=== PATIENT | male | born 1975 | race Caucasian/White ===

== ENCOUNTER 2024-07-02 08:53 | Emergency (ER) | payer BC, SELFPAY ==
[2024-07-02 09:00] VITALS: BP 115/82; PULSE 93; RESP 20; TEMP 35.9; O2SAT 90; BMI 25.8
--- NOTE | 2024-07-02 09:17 | ED_ITS ---
HPI - General Adult General Date Seen: 07/02/24 Chief complaint: Weakness Stated complaint: blood sugar issues Time Seen by Provider: 07/02/24 08:57 History of Present Illness HPI narrative: Patient is a 48-year-old male with underlying history of alcohol dependence, diabetes, pancreatitis, presents for evaluation of high blood sugars, weakness, cough. He is currently at a treatment center, [place], has been there since June 14 for treatment of alcohol dependence. For the past couple of days he has been having a cough and wheezing, has apparently been seen at an outside facility 3 previous times related to cough and elevated blood sugars. He notes a history of diabetes, he was maintained on Lantus 10 units at bedtime previously, more recently apparently had been told he does not need the insulin and says he was switched to metformin but that did not have good blood sugar control mode switch back to Lantus. Blood sugar this morning was 400. He was taking prednisone until yesterday but says he discontinued that because of elevated blood sugars. He feels generally weak and thirsty, which is how he gets when his blood sugars high. He did not have anything else to use for elevated blood sugar at the treatment facility and so presents for additional evaluation. Continues to have wheezing and cough, does not feel significantly short of breath. Does have history tobacco use. Related Data Allergies Allergy/AdvReac Type Severity Reaction Status Date / Time bupropion (From Wellbutrin) Allergy Verified 07/02/24 08:58 Review of Systems Status of ROS: Reports: 10 or more systems reviewed and unremarkable except as noted in History and below [facility] Social History Smoking Status: Current every day smoker What tobacco products do you use: cigarettes Do you use any of these nicotine containing products: None Second hand tobacco smoke exposure: No Non-prescribed substance use details: last drink 06/14/24 service: No Exam Narrative: Exam Narrative: Vital signs reviewed In general, alert, nontoxic mid age male. Breathing comfortably. Head: Normocephalic, atraumatic. Eyes: Sclera clear. Pupils equal and reactive. ENT: Mucous membranes moist. Neck: Supple without adenopathy. Heart: Regular rate and rhythm without murmur. Lungs: Scattered bilateral wheezes and rhonchi. No increased work of breathing. Bronchospastic cough. Abdomen: Soft, nontender to palpation. Protuberant. No obvious ascites. Extremities: Well perfused, pulses intact. No significant edema. Neurologic: Alert, conversant. Speech fluent, face symmetric. Moves all extremities equally. Skin: Warm, dry well perfused. Affect: Flat. Const: Vital Signs, click to edit/add: Vital Signs - 24 hr 07/02/24 09:00 Temperature 96.7 F L Pulse Rate [Pulse Oximeter] 93 Respiratory Rate 20 Blood Pressure [Ri ght Upper Arm] 115/82 Pulse Oximetry 90 Oxygen Delivery Me thod Room Air Course Course ED Course: Patient presents with concerns of hyperglycemia in the setting of diabetes, ongoing cough and bronchospasm. He is mildly hypoxic here, room air O2 sats of 89-91%. He does have some wheezing so will give a DuoNeb for that. Hyperglycemia likely related to prednisone use, but will rule out significant other metabolic disturbance, DKA etcetera. Will get a blood sugar here and then we can give him some subQ regular insulin if needed. Given hypoxia, will just check a chest x-ray and make sure he does not have pneumonia as well. Chest x-ray by my review is negative, radiology read it is negative as well. His blood sugar was elevated at 400, 372 on his metabolic panel, gave him 8 units of subcu regular insulin. However, all of his other labs are reassuring. His white blood cell count is normal, there is no evidence of acidosis, venous pH is 7.44 pCO2 is normal, BUN creatinine are normal and his CO2 is 26. Lactate is 1.5, LFTs unremarkable BNP normal. Overall, clearly has some hyperglycemia, likely related to a combination of being sick and recent prednisone use. Did suggest that the prednisone be held, for now, I have recommended that he continue with his Lantus. I did recommend that he see someone in primary care clinic to assess whether his insulin dosing needs to be adjusted. Continue with albuterol as needed for wheezing and cough, no evidence of pneumonia today. Vital Signs Vital signs: Initial Vital Signs Temperature 96.7 F L 07/02/24 09:00 Temperature Source Temporal Artery Scan 07/02/24 09:00 Pulse Rate 93 07/02/24 09:00 Pulse Rhythm Regular 07/02/24 09:00 Respiratory Rate 20 07/02/24 09:00 Blood Pressure 115/82 07/02/24 09:00 Blood Pressure Mean 93 07/02/24 09:00 Blood Pressure Position High-Fowlers 07/02/24 09:00 Pulse Oximetry 90 07/02/24 09:00 Oxygen Delivery Method Room Air 07/02/24 09:00 Vital Signs Temperature 96.7 F L 07/02/24 09:00 Pulse Rate 93 07/02/24 09:00 Respiratory Rate 20 07/02/24 09:00 Blood Pressure 115/82 07/02/24 09:00 Pulse Oximetry 90 07/02/24 09:00 Oxygen Delivery Method Room Air 07/02/24 09:00 Temperature 96.7 F L 07/02/24 09:00 Pulse Rate 93 07/02/24 09:00 Respiratory Rate 20 07/02/24 09:00 Blood Pressure 115/82 07/02/24 09:00 Pulse Oximetry 90 07/02/24 09:00 Oxygen Delivery Method Room Air 07/02/24 09:00 Medications Administered Medications: Discontinued Medications Generic Name Dose Route Start Last Admin Trade Name Felicia PRN Reason Stop Dose Admin Albuterol/Ipratropium 1 neb 07/02/24 09:15 07/02/24 09:40 Iprat-Albut 0.5-2.5 Mg/3 Ml Neb IH 07/02/24 09:16 1 neb ONCE ONE Administration Sodium Chloride 500 mls @ 500 mls/hr 07/02/24 09:15 07/02/24 09:40 0.9 % Sodium Chloride 500 Ml IV 07/02/24 10:14 500 mls/hr .Q1H ONE Administration Insulin Human Regular 8 unit 07/02/24 09:55 07/02/24 10:12 Insulin Regular, Human 100 Unit/Ml Vial SUBCUT 07/02/24 09:56 8 unit ONCE ONE Administration Medical Decision Making Lab Data Lab results reviewed: Yes I reviewed the patient's lab results Labs: Lab Results 07/02/24 Range/Units 09:42 WBC 5.82 (4.50-11.00) K/uL RBC 4.82 (4.30-5.90) m/uL Hgb 15.7 (13.5-17.5) gm/dL Hct 45.2 (37.0-53.0) % MCV 94 (80-100) fL MCH 33 (26-34) pg MCHC 35 (32-36) gm/dL RDW Coeff of Katiuska 11.6 (11.5-15.5) % Plt Count 102 L (140-440) K/uL Neut % (Auto) 60.4 (42.0-72.0) % Lymph % (Auto) 28.7 (20-44) % [place] % (Auto) 8.8 (0.0-11.0) % Eos % (Auto) 1.4 (0.0-7.0) % Baso % (Auto) 0.5 (0.0-3.0) % Neut # (Auto) 3.52 (1.7-7.0) K/uL Lymph # (Auto) 1.67 (0.90-2.90) K/uL [place] # (Auto) 0.50 (0.00-0.90) K/UL Eos # (Auto) 0.08 (0.00-0.50) K/uL Baso # (Auto) 0.03 (0.00-0.30) K/uL Abs Immat Gran (auto) 0.01 (0.00-0.30) K/uL Imm/Tot Granulo (auto) 0.2 % Diff Slide Review Acceptable Review (Acceptable) VBG pH 7.441 H (7.32-7.43) VBG pCO2 41 (40-50) mmHG VBG pO2 50.0 H (25-47) mmHG VBG HCO3 28 (21-28) mmol/L Sodium 136 (135-149) mmol/L Potassium 3.9 (3.6-5.1) mmol/L Chloride 100 (96-114) mmol/L Carbon Dioxide 26 (20-32) mmol/L Anion Gap 10 (7-15) mEq/L BUN 18 (5-24) mg/dL Creatinine 0.6 (0.5-1.5) mg/dL Estimated Creat Clear 157.15 Estimated GFR 120 ml/min Glucose 372 H* (60-115) mg/dL Lactate 1.5 (0.5-1.9) mmol/L Calcium 9.1 (8.4-10.6) mg/dL Total Bilirubin 0.4 (0.1-1.5) mg/dL Direct Bilirubin 0.3 (0.0-0.5) mg/dL AST 34 (12-35) U/L ALT 65 H (4-50) U/L Alkaline Phosphatase 69 (40-150) U/L C-Reactive Protein 0.8 (0.5-1.0) mg/dL NT-Pro-B Natriuret Pep 28 pg/mL Total Protein 7.1 (6.0-8.3) g/dL Albumin 4.3 (3.3-5.0) g/dL Imaging Data Chest x-ray: Attestation: I have reviewed the pertinent imaging results. Radiologist's impression: Patient: Cesar Karimi MR#: [id number] : 1975 Acct:[id number] Loc: ED Service Date: 07/02/[address]: Ordering Physician: Magy Phan M.D. Date of Service: 07/02/24 Procedure(s): XR chest 2V Accession Number(s): [id number] cc: Magy Phan M.D.; Provider,Not a Local~ For Patients: As a result of the Cures Act, medical imaging exams and procedure reports are released immediately into your electronic medical record. You may view this report before your referring provider. If you have questions, please contact your health care provider. INDICATION: Cough. TECHNIQUE: Chest 2 views. COMPARISON: None. FINDINGS/ IMPRESSION: No focal consolidation, effusion or pneumothorax. Cardiac size is within normal limit without pulmonary edema. No acute osseous findings. Dictated by Wing Zuleta MD @ 07/02/2024 9:52:36 AM Discharge Plan Discharge Clinical Impression: Bronchitis, Hyperglycemia due to diabetes mellitus Patient Disposition: Home, Self-Care Condition: Improved Instructions: Diabetic Hyperglycemia (ED) Additional Instructions: Your blood sugar is somewhat elevated here but your other labs are reassuring. There is no sign of significant complication related to high blood sugars. I suspect that your blood sugars are running higher because you are ill and also because of recent prednisone. I think we should not use any further prednisone at this time. You may require adjustments in your medication going forward, but for now I would continue your long-acting insulin as previously prescribed. You should be seen by somebody in clinic for further evaluation/management of your diabetes. If you do not have a clinic doctor, you can call our clinic, to schedule with 1 of our primary care doctors. Continue to use your inhaler as needed for wheezing or cough. Your chest x-ray does not show any evidence of pneumonia. Follow Up/Referrals: Provider,Not a Local [Primary Care Provider] - Stand Alone Forms: [employer] Info Instructions
[2024-07-02] MEDS: 0.9 % SODIUM CHLORIDE 500 ML 500 ML IV (09:40)
[2024-07-02] MEDS: IPRAT-ALBUT 0.5-2.5 MG/3 ML NEB 1 NEB IH (09:40)
--- OUTSIDE RECORDS SUMMARY | 2024-07-02 09:41 | XMS_ITS | Clinical Summary ---
Author Organization [facility] Address [address] [place] [address] Care Team Providers Care [employer] Cage Supervisor Name Role Phone Provider, No Attributed RESOURCE Unavailable Unavailable Pcp, No MD Primary Care Provider Unavailabl e Allergies No known active allergies Medications vitamin B complex-vitamin C-folic acid-zinc (DIATX ZN/ FOLBEE PLUS CZ 5 MG) 5 MG TABS Take 5 mg by mouth 1 time per day Active PARoxetine (PAXIL) 20 mg tablet Take 60 mg by mouth 1 time per day Active atenolol (TENORMIN) 50 mg tablet Take 50 mg by mouth 1 time per day Active ibuprofen (MOTRIN) 600 mg tablet Take 600 mg by mouth Every 4 hours as needed for mild pain or headache Active acetaminophen (TYLENOL) 325 mg tablet Take 650 mg by mouth Every 4 hours as needed for mild pain or headache Active ondansetron (ZOFRAN) 4 mg tablet Take 4 mg by mouth Every 8 hours as needed for nausea or vomiting Active dicyclomine (BENTYL) 20 mg tablet Take 20 mg by mouth Every 4 hours as needed for other (Specify) (gastric distress) Active buPROPion (WELLBUTRIN XL) 150 mg tablet (24 hr) Take 150 mg by mouth 1 time per day Active senna-docusate sodium (SENOKOT-S;KANDY COLACE) 8.6-50 MG tabletIndicatio ns:Constipation , unspecified Take 1 tablet by mouth 2 times a day as needed for constipation 60 tablet 7 Active omeprazole (PRILOSEC) 20 mg capsuleIndicati ons:NSAID long-term use Take 1 capsule (20 mg) by mouth 1 time per day 90 capsule 3 7 Active Active Problems Problem Noted Date Diagnosed Date Hypomagnesemia 06/02/2016 HTN (hypertension) 06/02/2016 Depression 06/02/2016 Alcohol abuse 06/01/2016 Pancreatitis ([facility]) 06/01/2016 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 Social History Tobacco Use Types Packs/Day Years Used Date Smoking Tobacco: Every Day Cigarettes 1 19 Tobacco Cessation:Ready to Q uit: No; Counseling Given: Yes Alcohol Use Standard Drinks/Week Comments Yes 0 (1 standard drink = 0.6 oz pur e alcohol) 1/5 of whiskey per day Sexually Active [employer] Comments Never Sex and Gender Information Value Date Recorded Sex Assigned at Not on file Legal Sex Male 7:21 AM [facility] Gender Identity Not on file Sexual Orientation Not on file Last Filed Vital Signs Vital Sign Reading Time Taken Comments Blood Pressure 92/66 06/11/2016 11:19 AM [facility] [place] Pulse 80 06/11/2016 11:19 AM [facility] Temperature 35.9 C (96.6 F) 06/11/2016 11:19 AM [facility] Respiratory Rate 16 06/11/2016 11:19 AM [facility] Oxygen Saturation 94% 06/04/2016 4:12 AM [facility] Inhaled Oxygen Concentration - - Weight 82.6 kg (182 lb) 06/11/2016 11:19 AM [facility] Height 180.3 cm (5' 11) 06/11/2016 11:19 AM [facility] Body Mass Index 25.38 06/11/2016 11:19 AM [facility] Plan of Treatment Health Maintenance Due Date Last Done Comments Hepatitis C Screening 1975 Microalbumin 1976 Diabetic Foot Exam 1986 Ophthalmology Exam 1986 HIV One Time Screening Ages 15-65 11/10/1991 Hepatitis B Vaccine (1 of 3 - 19+ 3-dose series) 11/10/1995 Pneumococcal Vaccine (0-5yr; and At-risk 6-49yr) (1 of 2 - PCV) 11/10/1995 TDAP/TD VACCINE (1 - Tdap) 1997 Colorectal Cancer Screening 2021 Hemoglobin A1C Every 6 Months 10/20/2023, 12/01/2022, 04/18/2022, Additional history exists Covid-19 Vaccine (5 - 2023-2 5 season) 2023 02/10/2022, 05/03/2021, 11/14/2020, Additional history exists Influenza Vaccine (#1) 2023 , 03/18/2021, 01/18/2020, Additional history exists Lipid Screening 06/07/2025 06/07/2024, 05/21, 06/06/2024, Additional history exists Procedures Procedure Name Priority Date/Time Associated Diagnosis Comments CHOLESTEROL TOTAL Routine 04/21/2023 5:2 5 AM [facility] Alcohol use disorder, severe, dependence (HCC) Tobacco use disorder, severe, dependence Cannabis use disorder, severe, dependence (HCC) GLYCATED HEMOGLOBIN Routine 04/21/2023 5 :25 AM [facility] DM type 2 (diabetes mellitus, type 2) (HCC) from Last 3 Months or Most Recently Relevant to Health Maintenance Results * (ABNORMAL) GLYCATED HEMOGLOBIN (04/21/2023 5:25 AM [facility]) Hgb A1C 6.3(H) <5.7 % 04/21/2023 9:06 AM [facility] Estimated Average Glucose 134 mg/dL 04/21/2023 9:06 AM [facility] Blood BLOOD SPECIMEN / Unknown NC Venipuncture / Unknown 04/21/2023 5:25 AM [facility] 04/21/2023 8:42 AM [facility] Narrative [facility] - 04/21/2023 9:06 AM [facility] ADA Interpretive Guidelines When Using HbA1c for Diagnosis Prediabetes 5.7 - 6.4% Diabetes >= 6.5% When Using HbA1c for Monitoring a Person Known to Have Diabetes, < 7% is a reasonable goal for many non adults, < 7.5% should be considered in children and adolescents (<19 years) with type 1 diabetes. ADA Standards of Medical Care in Diabetes - 2019 us Deepika Haynes MD LAB BLOOD Final Result [facility] [address] [facility] [place] [address] * CHOLESTEROL TOTAL (04/21/2023 5:25 AM [facility]) Cholesterol 163 <200 mg/dL 04/21/2023 9:19 AM [facility] Fasting Yes Yes, No, Unknown 04/21/2023 9:19 AM [facility] Blood BLOOD SPECIMEN / Unknown NC Venipuncture / Unknown 04/21/2023 5:25 AM [facility] 04/21/2023 8:42 AM [facility] [place] us Deepika Haynes MD LAB BLOOD Final Result [facility] [address] [facility] [place] [address] from Last 3 Months or Most Recently Relevant to Health Maintenance Advance Directives For more information, please contact: [phone] * Full Code (Latest Code Status on File) Date Activated Date Inactivated Comments 06/01/2016 11:05 PM 06/04/2016 10:39 PM Care Teams Casino Cage Supervisor Relationship Specialty Start Date End Date Provider, No Attributed, RESOURCE [address] PCP - Attributed Provider 09/10/18 Pcp, Karuna, You have no PCP on file PCP - General 03/14/19
--- OUTSIDE RECORDS SUMMARY | 2024-07-02 09:41 | XMS_ITS | Encounter Summary ---
Author Organization [facility] er Address [address] [place] [address] Care Team Providers Care Greens Tier Name Role Phone Bonnie Antonio MD Primary Care Provider [phone] Reason for Visit * Reason Comments Blood Sugar Problem Started Prednisone. Encounter Details Date Type Department Care Team (Latest Contact Info) Description 07/01/2024 10:40 AM CDT Office Visit [address] [address] Howard Vieira MD [address] [place] [phone] Type 2 diabetes mellitus with hyperglycemia, with long-term current use of insulin (HCC) (Primary Dx); Primary hypertension; Hyperlipidemia, unspecified hyperlipidemia type; Acute bronchitis, unspecified organism Social History Tobacco Use Types Packs/Day Years Used Date Smoking Tobacco: Every Day Cigarettes 1 26.2 Started: 1998 Smokeless Tobacco: Former Alcohol Use Standard Drinks/Week Comments Not Currently 0 (1 standard drink = 0.6 oz pur e alcohol) 750ml per day B1300 Health Literacy Answer Date Recor ded How often do you need to hav e someone help you when you read instructions, pamphlets, or other written material from your doctor or pharmacy? Never 06/23/2024 [facility] Utilities Answer Date Recorded In the past 12 months has e electric, gas, oil, or water company threatened to shut off services in your home? No 06/23/2024 Humiliation, Afraid, Rape, and Kick questionnair e Answer Date Recorded Within the last year, have y ou been afraid of your partner or ex-partner? No 06/23/2024 Within the last year, have y ou been humiliated or emotionally abused in other ways by your partner or ex-partner? No Within the last year, have y ou been kicked, hit, slapped, or otherwise physically hurt by your partner or ex-partner? No 06/23/2024 Within the last year, have y ou been raped or forced to have any kind of sexual activity by your partner or ex-partner? No 06/23/2024 Social Connection and Isolation Panel [NHANES] A nswer Date Recorded In a typical week, how many times do you talk on the phone with family, friends, or neighbors? Once a week 06/24/19 How often do you get togethe r with friends or relatives? Twice a week 06/23/2024 How often do you attend chur ch or nondenominational services? 1 to 4 times per year 06/23/2024 Do you belong to any clubs o r organizations such as mormonism groups, unions, fraternal or athletic groups, or school groups? Yes 06/23/2024 How often do you attend meet ings of the clubs or organizations you belong to? 1 to 4 times per year 06/23/2024 Are you , , di vorced, , never , or living with a partner? 06/23/2024 AUDIT-C Answer Date Recorded Q1: How often do you have a drink containing alcohol? Never 06/23/2024 Q2: How many drinks containi ng alcohol do you have on a typical day when you are drinking? 3 or 4 5 Q3: How often do you have si x or more drinks on one occasion? Daily or almost daily 06/23/2024 Overall Financial Resource Strain (CARDIA) Answe r Date Recorded How hard is it for you to pa y for the very basics like food, housing, medical care, and heating? Hard 06/23/2024 PHQ-2 Answer Date Recorded PHQ-9 Total Score 9 06/23/2024 [facility] - Occupational Stress Questionnaire Answer Date Recorded Do you feel stress - tense, restless, nervous, or anxious, or unable to sleep at night because your mind is troubled all the time - these days? Very much 06/23/2024 Exercise Vital Sign Answer Date Recorde d On average, how many days pe r week do you engage in moderate to strenuous exercise (like a brisk walk)? 3 days 06/23/2024 On average, how many minutes do you engage in exercise at this level? 30 min 06/23/2024 Hunger Vital Sign Answer Date Recorded Within the past 12 months, y ou worried that your food would run out before you got the money to buy more. Sometimes true Within the past 12 months, t he food you bought just didn't last and you didn't have money to get more. Patient declined 09/2024 PRAPARE - Transportation Answer Date Re corded In the past 12 months, has l ack of transportation kept you from medical appointments or from getting medications? No 09/2024 In the past 12 months, has l ack of transportation kept you from meetings, work, or from getting things needed for daily living? No 06/23/2024 Housing Stability Vital Sign Answer Sean e Recorded In the last 12 months, was t here a time when you were not able to pay the mortgage or rent on time? No 06/23/2024 In the past 12 months, how m any times have you moved where you were living? 0 06/23/2024 At any time in the past 12 m [facility], were you homeless or living in a half-way (including now)? No 06/23/2024 Interpersonal Safety Questionnaire Answer Date Recorded How often does anyone, jazzylois adriana family and friends, physically hurt you? Never 06/23/2024 Emotionally Abused Not on file 06/23/2024 How often does anyone, jazzylois wright family and friends, threaten you with harm? Never 06/23/2024 How often does anyone, jazzylois wright family and friends, threaten you with harm? Never 06/23/2024 Sex and Gender Information Value Date Recorded Sex Assigned at Not on file Legal Sex Male 12:56 PM [facility]ILITY NURSE Gender Identity Not on file Sexual Orientation Not on file documented as of this encounter Last Filed Vital Signs Vital Sign Reading Time Taken Comments Blood Pressure 130/92 07/01/2024 10:42 AM CDT Pulse 97 07/01/2024 10:42 AM CDT Temperature 36.3 C (97.4 F) 07/01/2024 10:42 AM CDT Respiratory Rate 18 07/01/2024 10:42 AM CDT Oxygen Saturation 92% 07/01/2024 10:42 AM CDT Inhaled Oxygen Concentration - - Weight 83 kg (183 lb) 07/01/2024 10:42 AM CDT Height - - Body Mass Index 26.5 06/23/2024 1:52 PM [employer] FACILITY NURSE documented in this encounter Patient Instructions * Patient Instructions* Howard Vieira MD - 07/01/2024 10:40 AM CDT Re-Start Lantus at 10U qDaily documented in this encounter Progress Notes * Howard Vieira MD - 07/01/2024 10:40 AM CDT Cesar Karimi is a 48 y.o., male here today for elevated blood sugars, he was seen yesterday in the emergency room for some acute bronchitis and prescribed 50 mg of prednisone daily. He was currently on a titrating dose of increasing metformin as he had been on adherent to his treatment plan prior to admission to the [facility] He quite reasonably had his Lantus discontinued when his A1c came back at 6.3%. He says that the bronchitis is feeling improved he says that overall he feels better than he has done for the past few days denies any abdominal pain that is worse than his baseline abdominal pain noheadache or other symptoms. Allergies Allergen Reactions Bupropion Hives Past Medical History: Diagnosis Date Bronchitis Social History Tobacco Use Smoking status: Every Day Current packs/day: 1.00 Average packs/day: 1 pack/day for 26.2 years (26.2 ttl pk-yrs) Types: Cigarettes Start date: 1998 Smokeless tobacco: Former Vaping Use Vaping status: Never Used Substance Use Topics Alcohol use: Not Currently Comment: 750ml per day Drug use: Not Currently Frequency: 7.0 times per week Types: Marijuana Family History Problem Relation Age of Onset Prostate cancer Father 70 Review of Systems Constitutional: Negative for appetite change, chills, fatigue and fever. HENT: Negative for congestion, nosebleeds, postnasal drip, rhinorrhea, sore throat and trouble swallowing. Respiratory: Negative for cough, chest tightness, shortness of breath and stridor. Cardiovascular: Negative for chest pain, palpitations and leg swelling. Gastrointestinal: Negative for abdominal pain, blood in stool, constipation and diarrhea. Genitourinary: Negative for difficulty urinating, flank pain, hematuria and urgency. Musculoskeletal: Negative for arthralgias, back pain, gait problem and neck stiffness. Neurological: Negative for dizziness, tremors, light-headedness and headaches. Psychiatric/Behavioral: Negative for behavioral problems, confusion and dysphoric mood. All other systems reviewed and are negative. Objective Physical Exam Vitals reviewed. Constitutional: Appearance: Normal appearance. He is normal weight. HENT: Head: Normocephalic and atraumatic. Cardiovascular: Rate and Rhythm: Normal rate and regular rhythm. Heart sounds: Normal heart sounds. Pulmonary: Effort: Pulmonary effort is normal. Breath sounds: Normal breath sounds. Abdominal: General: Abdomen is flat. Bowel sounds are normal. Palpations: Abdomen is soft. Neurological: Mental Status: He is alert. Assessment/Plan Diagnoses and all orders for this visit: Type 2 diabetes mellitus with hyperglycemia, with long-term current use of insulin (HCC) - insulin glargine (Lantus SoloStar) 100 UNIT/ML injection; Inject 10 Units under the skin every night Primary hypertension Hyperlipidemia, unspecified hyperlipidemia type Acute bronchitis, unspecified organism In this gentleman who has chronic pancreatitis it is unclear how much exocrine pancreas function hehas left it may be that he needs to be on insulin for the remainder of his life. Will go ahead and restart his Lantus at 10 units daily I think it would be appropriate to continue the metformin as itshould not increase his pancreatitis risk and should potentiate the effect of his Lantus he will follow-up with me in a week's time and we will reevaluate him and recheck his blood sugar and kidney function documented in this encounter Plan of Treatment Upcoming Encounters Date Type Department Care Team (Late st Contact Info) Description 07/06/2024 1:00 PM CDT Office Visit [place] [address] [address] Santos Salas MD [address] [place] [phone] documented as of this encounter Visit Diagnoses Diagnosis Type 2 diabetes mellitus with hyperglycemia, with long-term current use of insulin (HCC)- Primary Primary hypertension Unspecified essential hypertension Hyperlipidemia, unspecified hyperlipidemia type Acute bronchitis, unspecified organism documented in this encounter Care Teams Greens Tier Relationship Specialty Start Date End Date Bonnie Antonio MD [address] [place] [phone] PCP - General Family Medicine 06/23/24 documented as of this encounter
--- OUTSIDE RECORDS SUMMARY | 2024-07-02 09:42 | XMS_ITS | Clinical Summary ---
Author Organization [facility] er Address [address] [place] [address] Care Team Providers Care Concrete Pile Driver Operator Name Role Phone Bonnie Antonio MD Primary Care Provider Allergies Active Allergy Reactions Criticality Noted Date Comments Bupropion Hives High 03/29/2018 Medications acetaminophen (TYLENOL) 500 MG tablet Take 2 tablets (1,000 mg total) by mouth 2 times daily as needed 4 Active busPIRone (BUSPAR) 30 MG tablet Take 1 tablet (30 mg total) by mouth 2 times daily 5 Active FLUoxetine (PROzac) 40 MG capsule Take 1 capsule (40 mg total) by mouth daily 5 Active gabapentin (NEURONTIN) 300 MG capsule Take 1 capsule (300 mg total) by mouth 3 (three) times a day Two in am, three in afternoon and three at night. 4 Active ibuprofen (ADVIL) 600 MG tablet Take 1 tablet (600 mg total) by mouth 1 (one) time each day if needed Active Zenpep [address] units capsule delayed-release particles Take 1 capsule by mouth 3 (three) times a day 4 Active QUEtiapine (SEROquel) 25 MG tablet Take 1 tablet (25 mg total) by mouth 3 (three) times a day 25mg am, 25mg at noon, 50mg HS 5 Active metFORMIN XR (GLUCOPHAGE-XR) 500 MG 24 hr tabletIndicatio ns:Type 2 Diabetes Mellitus Take 1 tablet (500 mg total) by mouth 1 (one) time each day with dinner for 7 days, THEN 2 tablets (1,000 mg total) 1 (one) time each day with dinner for 7 days, THEN 3 tablets (1,500 mg total) 1 (one) time each day with dinner for 7 days, THEN 4 tablets (2,000 mg total) 1 (one) time each day with dinner. Do not crush, chew, or split.. 402 tablet 5 10/13/19 25 Active albuterol HFA (Ventolin HFA) 108 (90 Base) MCG/ACT inhalerIndicati ons:Wheezing Inhale 2 puffs every 4 (four) hours if needed for wheezing or shortness of breath 6.7 g 5 07/31/19 25 Active predniSONE (DELTASONE) 50 MG tabletIndicatio ns:Wheezing Take 1 tablet (50 mg total) by mouth 1 (one) time each day for 5 days 5 tablet 5 07/06/19 25 Active benzonatate (TESSALON) 200 MG capsuleIndicati ons:Acute cough Take 1 capsule (200 mg total) by mouth 3 (three) times a day if needed for cough for up to 7 days Do not crush or chew. 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 Repeat CT chest 6 months for monitoring. Gastroesophageal reflux disease 09/26/2020 Generalized anxiety disorder 03/14/2020 Overview (06/27/2024): Buspar 15 mg twice daily Paxil 50 mg daily Severe episode of recurrent major depressive disorder, without psychotic features 03/14/2020 Prolonged QT interval 09/04/2019 Overview (06/27/2024): Secondary to electrolyte abnormalities. Chronic pancreatitis 07/16/2019 Overview (06/27/2024): GI 08/22/2022: Severe chronic pancreatitis with associated chronic abdominal pain and N/V. Recommend continuing Zenpep. Recommend EUS and ERCP for pancreatic duct stones and to place a stent for lithotripsy, followed by lithotripsy, followed by repeat ERCP to remove the stent and fragments. Currently scheduled for November Hypokalemia 07/08/2019 Type 2 diabetes mellitus with hyperglycemia 02/19 Overview (06/27/2024): Metformin 1000 mg twice daily Glipizide dose was decreased to 2.5 mg daily as he had an episode of hypoglycemia at 5 mg. He is currently not taking this. Patient is a smoker, smoking cessation encouraged, not interested. Acquired absence of other sp ecified parts of digestive tract 02/18/2018 Overview (06/27/2024): 02/2018. For recurrent complicated sigmoid diverticulitis. S/p colostomy takedown 10/2018. Hypomagnesemia 06/02/2016 Pseudocyst of pancreas 06/01/2016 Tobacco dependence due to cigarettes 12/30/2010 Primary hypertension 08/14/2010 Encounters Date Type Department Care Team Description 07/01/2024 10:40 AM CDT Office Visit [address] [address] Howard Vieira MD Type 2 diabetes mellitus with hyperglycemia, with long-term current use of insulin (HCC) (Primary Dx); Primary hypertension; Hyperlipidemia, unspecified hyperlipidemia type; Acute bronchitis, unspecified organism 06/30/2024 Orders Only [address] [address] Santos Salas MD Wheezing (Primary Dx); Acute cough 06/23/2024 2:30 PM [facility] [employer] [facility] [address] [address] Type 2 diabetes mellitus without complication, with long-term current use of insulin (HCC) 06/23/2024 2:00 PM [employer] Office Visit [address] [address] Santos Salas MD Encounter for other administrative examinations (Primary Dx); Alcohol-induced chronic pancreatitis (HCC); Type 2 diabetes mellitus without complication, with long-term current use of insulin (HCC) from Last 3 Months Family History Medical History Relation Comments Prostate cancer Father Relation Status Comments Brother Alive Father Mother Alive Sister Alive Son 1 Alive Son 2 Alive Social History Tobacco Use Types Packs/Day Years Used Date Smoking Tobacco: Every Day Cigarettes 1 .2 Started: 1998 Smokeless Tobacco: Former Tobacco Cessation:Ready to Q uit: No Alcohol Use Standard Drinks/Week Comments Not Currently 0 (1 standard drink = 0.6 oz pur e alcohol) 750ml per day B1300 Health Literacy Answer Date Recor ded How often do you need to hav e someone help you when you read instructions, pamphlets, or other written material from your doctor or pharmacy? Never 06/23/2024 [facility] Utilities Answer Date Recorded In the past 12 months has [facility] [employer], gas, oil, or water [employer] threatened to shut off services in your [...] friends, or neighbors? Once a week 06/24/19 25 How often do you get togethe r with friends or relatives? Twice a week 06/23/2024 How often do you attend chur ch or voodoo services? 1 to 4 times per year 06/23/2024 Do you belong to any clubs o r organizations such as scientology groups, unions, fraternal or athletic groups, or [...] when you are drinking? 3 or 4 Q3: How often do you have si x or more drinks on one occasion? Daily or almost daily 06/23/2024 Overall Financial Resource Strain (CARDIA) Answe r Date Recorded How hard is it for you to pa y for the very basics like food, housing, medical care, and heating? Hard 06/23/2024 PHQ-2 Answer Date Recorded PHQ-9 Total Score 9 06/23/2024 [facility] - Occupational Stress Questionnaire Answer Date Recorded [...] any time in the past 12 m [facility], were you homeless or living in a senior care (including now)? No 06/23/2024 Interpersonal Safety Questionnaire Answer Date Recorded How often does anyone, fuentes wright family and friends, physically hurt you? Never 06/23/2024 Emotionally Abused Not on file 06/23/2024 How often does anyone, fuentes wright family and friends, threaten you with harm? Never 06/23/2024 How often does anyone, fuentes wright family and friends, threaten you with harm? Never 06/23/2024 Sex and Gender Information Value Date Recorded Sex Assigned at Not on file Legal Sex Male 12:56 PM [employer] Gender Identity Not on file Sexual Orientation [...] (183 lb) 07/01/2024 10:42 AM CDT Height 177 cm (5' 9.69) 06/23/2024 1:52 PM [employer] Body Mass Index 26.5 06/23/2024 1:52 PM [employer] Plan of Treatment Upcoming Encounters Date Type Department Care Team (Late st Contact Info) Description 07/06/2024 1:00 PM CDT Office Visit [place] [facility] [address] [place] [address] Santos Salas MD [address] [place] [phone] Health Maintenance Due Date Last Done Comments Diabetes: Retinopathy Screening 1986 Diabetes: Foot Exam 1994 COVID-19 Vaccine ( season) 2023 02/10/2022, 05/03/2021, 11/14/2020, Additional history exists Influenza Vaccine (#1) 2023 , 02/24/2022, 03/18/2021, Additional history exists Lipid Panel 04/21/2024 04/21/2023, 05/2023, 12/01/2022, Additional history exists Diabetes: Hemoglobin A1C 12/24/2024 025, 07/10/2023, 04/21/2023, Additional history exists Diabetes: Urine Protein Screening 06/23/2025 06/23/2024, 12/01/2022, 12/01/2022, Additional history exists DTaP,Tdap,and Td Vaccines (2 - Td or Tdap) 11/19/2028 11/19/2018 Colonoscopy Discontinued 04/28/2022 Colorectal Cancer Screening Discontinued Pneumococcal Vaccine: Pediatrics (0 to 5 Years) and At-Risk Patients (6 to 49 Years) Completed 09/23/2022, 11/19/2018 CT Colonography Discontinued FIT-DNA Discontinued HPV Vaccines Aged Out No longer eligi ble based on patient's age to complete this topic Sigmoidoscopy Discontinued iFOBT Discontinued Procedures Procedure Name Priority Date/Time Associated Diagnosis Comments HEMOGLOBIN A1C Routine 06/23/2024 2:35 PM [employer] Type 2 diabetes mellitus without complication, with long-term current use of insulin (HCC) MICROALBUMIN/CREATIN INE RATIO Routine 06/23/2024 2:28 PM [employer] Type 2 diabetes mellitus without complication, with long-term current use of insulin (HCC) from Last 3 Months Results * (ABNORMAL) Hemoglobin A1c (06/23/2024 2:35 PM [employer]) Hemoglobin A1C 6.3(H) 4.0 - 5.6 % A1C 06/24/2024 2:10 PM [employer] [facility] Comment: Reference Range 4.0-5.6% is for non- adults >=18 yrs <5.6% Non-Diabetic 5.7-6.4% Increased risk of Diabetes >=6.5% Indicative of Diabetes <7.0% ADA goal for glycemic control Methodology may not detect all hemoglobin variants which can affect A1c results. Method certified by National Glycohemoglobin Standardization Program. Blood (Blood, Venous) 06/23/2024 2:35 PM [employer] 06/24/2024 12:41 PM [employer] us Santos Salas MD LAB BLOOD ORDERABLES Final R esult Performing Organization Address [facility] Co de Phone Number [facility] [address] [place] [address] * Microalbumin/Creatinine Ratio (06/23/2024 2:28 PM [employer]) Pathologist [facility] Microalbumin,mg/ day <6.0 0.0 - 16.6 mg/L 06/24/2024 1:21 PM [employer] [facility] Creatinine, Urine 68 mg/dL 06/24/2024 1:21 PM [employer] [facility] Comment: No established reference range. Microalb/Creat Ratio see below 0 - 16 mg/g 06/24/2024 1:21 PM [employer] [facility] Comment: Microalbumin value outside of detectable range. Unable to report Microalbumin/Creatinine ratio. Consider 24-hour collection if clinically indicated. Urine 06/23/2024 2:28 PM [employer] 06/24/2024 12:42 PM [employer] Santos Salas MD LAB URINE ORDERABLES Final R esult Performing Organization Address [facility] Co de Phone Number [facility] [address] [place] [address] from Last 3 Months Insurance [id number] [place] [phone] [facility] [place] [id number] Care Teams Concrete Pile Driver Operator Relationship Specialty Start Date End Date Bonnie Antonio MD [address] [place] [phone] PCP - General Family Medicine 06/23/24
--- OUTSIDE RECORDS SUMMARY | 2024-07-02 09:42 | XMS_ITS | Encounter Summary ---
Author Organization [facility] Address [address] [place] [phone] Phone [email or web address] Care Team Providers Care Sizer Machine Name Role Phone Unavailable Primary Care Provider Unavailabl e Encounter Details Date Type Department Care Team (Late st Contact Info) Description 05/31/2024 Claims Summary [facility] [address] [place] [address] Provider, Claims Summary External, [address] [place] [id number] Social History Tobacco Use Types Packs/Day Years Used Date Smoking Tobacco: Never Assessed Stress Answer Date Recorded Stress in your Life Not on file 02/28/2024 Dealing with Stress 3 02/28/2024 Sex and Gender Information Value Date Recorded Sex Assigned at Not on file Legal Sex Male 12:13 AM CDT Gender Identity Not on file Sexual Orientation Not on file documented as of this encounter Plan of Treatment Not on file documented as of this encounter Visit Diagnoses Not on filedocumented in this encounter
--- OUTSIDE RECORDS SUMMARY | 2024-07-02 09:42 | XMS_ITS | Encounter Summary ---
Author Organization [facility] Address [address] [place] [phone] Phone [email or web address] Care Team Providers Care Arabic Teacher Name Role Phone Unavailable Primary Care Provider Unavailabl e Encounter Details Date Type Department Care Team (Late st Contact Info) Description 12/30/2023 Claims Summary [facility] [address] [place] [address] Provider, Claims Summary External, [address] [place] [id number] Social History Tobacco Use Types Packs/Day Years Used Date Smoking Tobacco: Never Assessed Sex and Gender Information Value Date Recorded Sex Assigned at Not on file Legal Sex Male 12:13 AM CDT Gender Identity Not on file Sexual Orientation Not on file documented as of this encounter Plan of Treatment Not on file documented as of this encounter Visit Diagnoses Not on filedocumented in this encounter
--- OUTSIDE RECORDS SUMMARY | 2024-07-02 09:42 | XMS_ITS | Encounter Summary ---
Author Organization [facility] Address [address] [place] [phone] Phone [email or web address] Care Team Providers Care Meter Maker Name Role Phone Unavailable Primary Care Provider Unavailabl e Encounter Details Date Type Department Care Team (Late st Contact Info) Description 03/02/2024 Claims Summary [facility] [address] [place] [address] Provider, Claims Summary External, [address] [place] [address] Social History Tobacco Use Types Packs/Day [...]
--- OUTSIDE RECORDS SUMMARY | 2024-07-02 09:42 | XMS_ITS | Encounter Summary ---
Author Organization [facility] Address [address] [place] [address] Phone [email or web address] Care Team Providers Care Lathe Turner Name Role Phone Unavailable Primary Care Provider Unavailabl e Encounter Details Date Type Department Care Team (Late st Contact Info) Description 04/27/2024 Claims Summary [facility] [address] [place] [address] Provider, Claims Summary External, [address] [place] [address] Social History Tobacco Use Types Packs/Day [...]
--- OUTSIDE RECORDS SUMMARY | 2024-07-02 09:42 | XMS_ITS | Encounter Summary ---
Author Organization [facility] Address [address] [place] [address] Phone [email or web address] Care Team Providers Care Molder Floor Name Role Phone Unavailable Primary Care Provider Unavailabl e Encounter Details Date Type Department Care Team (Late st Contact Info) Description 03/29/2024 Claims Summary [facility] [address] [place] [address] Provider, Claims Summary External, [address] [place] [address] Social History Tobacco Use Types Packs/Day [...]
--- OUTSIDE RECORDS SUMMARY | 2024-07-02 09:42 | XMS_ITS | Encounter Summary ---
Author Organization [facility] er Address [address] [place] [address] Care Team Providers Care Trouble Clerk Name Role Phone Bonnie Antonio MD Primary Care Provider Encounter Details Date Type Department Care Team (Late st Contact Info) Description 06/30/2024 Orders Only [facility] [address] [place] [address] Santos Salas MD [address] [facility] [address] [place] [address] Wheezing (Primary Dx); Acute cough Social History Tobacco Use Types Packs/Day Years [...] from your doctor or pharmacy? Never 06/23/2024 [facility] Utilities Answer Date Recorded In the past 12 months has e [employer], oil, or water [employer] threatened to shut off services in your [...] 06/23/2024 How often do you attend chur or nondenominational services? 1 to 4 times per year 06/23/2024 Do you belong to any clubs o r organizations such as synagogue groups, unions, fraternal or athletic groups, or [...] Date Recorded PHQ-9 Total Score 9 06/23/2024 [facility] - Occupational Stress [...] any time in the past 12 m [facility], were you homeless or living in a skilled nursing (including now)? No 06/23/2024 Interpersonal Safety Questionnaire Answer Date Recorded How often does anyone, fuentes wrihgt family and friends, physically hurt you? Never 06/23/2024 Emotionally Abused Not on file 06/23/2024 How often does anyone, fuentes wright family and friends, threaten you with harm? Never 06/23/2024 How often does anyone, fuentes wright family and friends, threaten you with harm? Never 06/23/2024 Sex and Gender Information Value Date Recorded Sex Assigned at Not on file Legal Sex Male 12:56 PM QUARRY WORKER Gender Identity Not on file Sexual Orientation Not on file documented as of this encounter Progress Notes * Santos Salas MD - 06/30/2024 5:07 PM CDT Diagnosis Plan 1. Wheezing albuterol HFA (Ventolin HFA) 108 (90 Base) MCG/ACT inhaler predniSONE (DELTASONE) 50 MG tablet 2. Acute cough benzonatate (TESSALON) 200 MG capsule Received paper request for medications that were ordered by ER provider as he is restricted to us prescribing. documented in this encounter Plan of Treatment Upcoming Encounters Date Type Department Care Team (Late st Contact Info) Description 07/06/2024 1:00 PM CDT Office Visit [facility] [address] [address] Santos Salas MD [address] [facility] [address] [place] [address] documented as of this encounter Visit Diagnoses Diagnosis Wheezing- Primary Acute cough documented in this encounter Care Teams Trouble Clerk Relationship Specialty Start Date End Date Bonnie Antonio MD [address] [place] [id number] PCP - General Family Medicine 06/23/24 documented as of this encounter
--- OUTSIDE RECORDS SUMMARY | 2024-07-02 09:42 | XMS_ITS | Encounter Summary ---
Author Organization [facility] er Address [address] [place] [address] Care Team Providers Care Lab Intern Name Role Phone Bonnie Antonio MD Primary Care Provider [phone] Encounter Details Date Type Department Care Team (Late st Contact Info) Description 06/23/2024 2:30 PM RETAIL MANAGER IN TRAINING Lab [place] [address] [place] [address] Type 2 diabetes mellitus without complication, with long-term current use of insulin (HCC) Social History Tobacco Use Types Packs/Day Years [...] from your doctor or pharmacy? Never 06/23/2024 [facility] Utilities Answer Date Recorded In the past 12 months has e [employer], gas, oil, or water [employer] threatened to shut off services in your [...] often do you attend chur ch or yazidi services? 1 to 4 times per year 06/23/2024 Do you belong to any clubs o r organizations such as rastafari groups, unions, fraternal or athletic groups, or [...] Date Recorded PHQ-9 Total Score 9 06/23/2024 [facility] - Occupational Stress Questionnaire Answer Date Recorded [...] any time in the past 12 m [facility], were you homeless or living in a usp (including now)? No 06/23/2024 Interpersonal Safety Questionnaire Answer Date Recorded How often does anyone, fuentes wright family and friends, physically hurt you? Never 06/23/2024 Emotionally Abused Not on file 06/23/2024 How often does anyone, jazzyu adriana family and friends, threaten you with harm? Never 06/23/2024 How often does anyone, fuentes wright family and friends, threaten you with harm? Never 06/23/2024 Sex and Gender Information Value Date Recorded Sex Assigned at Not on file Legal Sex Male 12:56 PM RETAIL MANAGER IN TRAINING Gender Identity Not on file Sexual Orientation Not on file documented as of this encounter Plan of Treatment Upcoming Encounters Date Type Department Care Team (Late st Contact Info) Description 07/06/2024 1:00 PM CDT Office Visit [address] [address] Santos Salas MD [address] [place] [phone] documented as of this encounter Procedures Procedure Name Priority Date/Time Associated Diagnosis Comments HEMOGLOBIN A1C Routine 06/23/2024 2:35 PM RETAIL MANAGER IN TRAINING Type 2 diabetes mellitus without complication, with long-term current use of insulin (HCC) MICROALBUMIN/CREATIN INE RATIO Routine 06/23/2024 2:28 PM RETAIL MANAGER IN TRAINING Type 2 diabetes mellitus without complication, with long-term current use of insulin (HCC) documented in this encounter Results * (ABNORMAL) Hemoglobin A1c (06/23/2024 2:35 PM RETAIL MANAGER IN TRAINING) Hemoglobin A1C 6.3(H) 4.0 - 5.6 % A1C 06/24/2024 2:10 PM RETAIL MANAGER IN TRAINING [facility] Comment: Reference Range 4.0-5.6% is for non- adults >=18 yrs <5.6% Non-Diabetic 5.7-6.4% Increased risk of Diabetes >=6.5% Indicative of Diabetes <7.0% ADA goal for glycemic control Methodology may not detect all hemoglobin variants which can affect A1c results. Method certified by National Glycohemoglobin Standardization Program. Blood (Blood, Venous) 06/23/2024 2:35 PM RETAIL MANAGER IN TRAINING 06/24/2024 12:41 PM RETAIL MANAGER IN TRAINING Santos Salas MD LAB BLOOD ORDERABLES Final R esult [facility] [address] [place] [address] * Microalbumin/Creatinine Ratio (06/23/2024 2:28 PM RETAIL MANAGER IN TRAINING) Microalbumin,mg/ day <6.0 0.0 - 16.6 mg/L 06/24/2024 1:21 PM RETAIL MANAGER IN TRAINING [facility] Creatinine, Urine 68 mg/dL 06/24/2024 1:21 PM RETAIL MANAGER IN TRAINING [facility] Comment: No established reference range. Microalb/Creat Ratio see below 0 - 16 mg/g 06/24/2024 1:21 PM RETAIL MANAGER IN TRAINING [facility] Comment: Microalbumin value outside of detectable range. Unable to report Microalbumin/Creatinine ratio. Consider 24-hour collection if clinically indicated. Urine 06/23/2024 2:28 PM RETAIL MANAGER IN TRAINING 06/24/2024 12:42 PM RETAIL MANAGER IN TRAINING Santos Salas MD LAB URINE ORDERABLES Final R esult [facility] [address] [place] [address] documented in this encounter Visit Diagnoses Diagnosis Type 2 diabetes mellitus without complication, with long-term current use of insulin (HCC) documented in this encounter Care Teams Lab Intern Relationship Specialty Start Date End Date Bonnie Antonio MD [address] [place] [phone] PCP - General Family Medicine 06/23/24 documented as of this encounter
--- OUTSIDE RECORDS SUMMARY | 2024-07-02 09:42 | XMS_ITS | Encounter Summary ---
Author Organization [facility] Address [address] [place] [address] Phone [email or web address] Care Team Providers Care Renovator Machine Operator Name Role Phone Unavailable Primary Care Provider Unavailabl e Encounter Details Date Type Department Care Team (Late st Contact Info) Description 01/28/2024 Claims Summary [facility] [address] [place] [address] Provider, Claims Summary External, [address] [place] [address] Social History Tobacco Use Types Packs/Day [...]
--- OUTSIDE RECORDS SUMMARY | 2024-07-02 09:42 | XMS_ITS | Encounter Summary ---
Author Organization [facility] er Address [address] [place] [address] Care Team Providers Care Steward/Stewardess Second Class Name Role Phone Bonnie Antonio MD Primary Care Provider [phone] Reason for Visit * Reason Comments Annual Exam [facility] H&P Encounter Details Date Type Department Care Team (Latest Contact Info) Description 06/23/2024 2:00 PM ASSOCIATE FACULTY Office Visit [address] [address] Santos Salas MD [address] [place] [phone] Encounter for other administrative examinations (Primary Dx); Alcohol-induced chronic pancreatitis (HCC); Type 2 diabetes mellitus without complication, with long-term current use of insulin (HCC) Social History Tobacco Use Types Packs/Day Years Used Date Smoking Tobacco: Every Day Cigarettes 1 26.2 Started: 1998 Smokeless Tobacco: Former Tobacco Cessation:Ready [...] from your doctor or pharmacy? Never 06/23/2024 [facility] Utilities Answer Date Recorded In the past [...] often do you attend chur ch or hoahaoism services? 1 to 4 times per year 06/23/2024 Do you belong to any clubs o r organizations such as islam groups, unions, fraternal or athletic groups, or [...] Date Recorded PHQ-9 Total Score 9 06/23/2024 [facility] of Occupat ional Health - Occupational Stress [...] any time in the past 12 m [facility], were you homeless or living in a chcf (including now)? No 06/23/2024 Interpersonal Safety Questionnaire Answer Date Recorded How often does anyone, jazzylois adriana family and friends, physically hurt you? Never 06/23/2024 Emotionally Abused Not on file 06/23/2024 How often does anyone, incllois wright family and friends, threaten you with harm? Never 06/23/2024 How often does anyone, jazzylois wright family and friends, threaten you with harm? Never 06/23/2024 Sex and Gender Information Value Date Recorded Sex Assigned at Not on file Legal Sex Male 12:56 PM ASSOCIATE FACULTY Gender Identity Not on file Sexual Orientation Not on file documented as of this encounter Last Filed Vital Signs Vital Sign Reading Time Taken Comments Blood Pressure 125/84 06/23/2024 1:52 PM ASSOCIATE FACULTY Pulse 112 06/23/2024 1:52 PM ASSOCIATE FACULTY Temperature 36.6 C (97.8 F) 06/23/2024 1:52 PM ASSOCIATE FACULTY Respiratory Rate 18 06/23/2024 1:52 PM ASSOCIATE FACULTY Oxygen Saturation 91% 06/23/2024 1:52 PM ASSOCIATE FACULTY Inhaled Oxygen Concentration - - Weight 83.9 kg (184 lb 14.4 oz) 06/23/2024 1:52 PM ASSOCIATE FACULTY Height 177 cm (5' 9.69) 06/23/2024 1:52 PM ASSOCIATE FACULTY Body Mass Index 26.77 06/23/2024 1:52 PM ASSOCIATE FACULTY documented in this encounter Patient Instructions * Patient Instructions* Santos Salas MD - 06/23/2024 2:00 PM ASSOCIATE FACULTY Your A1C looks great. Your urine also is normal. Since your A1C is so well controlled, I would recommend to stop the Insulin and start with Metformin therapy as prescribed with titration up to 4 tablets daily with largest meal by 4 weeks. documented in this encounter Progress Notes * Santos Salas MD - 06/23/2024 2:00 PM CST Subjective Patient ID: Cesar Karimi is a 48 y.o. male here for physical for recent admission to substance use treatment center, [facility], in [place], [place]. Assessment/Plan Diagnosis Plan 1. Encounter for other administrative examinations 2. Alcohol-induced chronic pancreatitis (HCC) 3. Type 2 diabetes mellitus without complication, with long-term current use of insulin (HCC) metFORMIN XR (GLUCOPHAGE-XR) 500 MG 24 hr tablet Hemoglobin A1c Microalbumin/Creatinine Ratio Assessment & Plan 1. Alcohol Use Disorder - Currently undergoing substance use treatment at the [facility] 2. Diabetes Mellitus - Blood glucose levels consistently around 200, indicating suboptimal control - Occasional hypoglycemic episodes with blood sugar levels dropping to 50, causing disorientation and shakiness - On insulin glargine 10 units before lunch - A1c was 7.8 on July 10, 2023 - Will be reinitiated on metformin, starting with a low dose and gradually increasing over four weeks - Advised to monitor blood glucose levels closely - Consider insulin adjustment or discontinuation based on A1C levels and ongoing glucose monitoring(given he had some lows to 50s, would er on stopping this and going back on Metformin) - Laboratory tests for A1c and microalbumin to be conducted today 3. Anxiety - On gabapentin 300 mg twice in the morning, 900 mg in the afternoon, and 900 mg at night - On fluoxetine 40 mg once a day - On BuSpar 30 mg twice a day - On Seroquel 25 mg twice a day, 50 mg at night for mental health 4. Pancreatitis - History of pancreatitis, last episode over a year ago - Taking Zenpep 20,000/63,000 units three times a day with meals 5. Smoking - Smokes about a pack of cigarettes a day, not currently trying to quit 6. Moderate Pain - Uses Tylenol and ibuprofen as needed for moderate pain Follow-up - Patient will follow up in 1 month PROCEDURE The patient has a history of appendectomy, hernia repair, and partial colectomy for diverticulitis. Any psychiatric medications are being managed by [facility] mental health providers. Results - Laboratory Studies: - Blood sugar: 220 - A1c: 7.8 (July 10, 2023) - Magnesium: 1.4 (slightly low) - Lipase: 6 (low) - Calcium: 8.4 (slightly low) - Kidney function: normal - Blood counts: normal HPI History of Present Illness The patient presents for an exam at the [facility], where he is currently residingand undergoing substance use treatment. Alcohol Use - Currently undergoing treatment for alcohol use - Last episode of heavy drinking on 06/14/2024 - Consumed approximately one-fifth of a bottle daily - Reports occasional night sweats attributed to alcohol consumption, but not currently present Diabetes - Managed with insulin therapy - Monitors blood glucose levels using a sensor, currently unable to use due to phone issues - Blood glucose level recorded as 220 this morning at 11:30 AM - Blood glucose levels consistently around 200 over the past year, with occasional drops to the 50s - Experiences symptoms of thirst when blood glucose levels are elevated - Experiences disorientation and shakiness when blood glucose levels are low - Administers insulin glargine before lunch - No history of amputations, urinary tract infections, or fungal infections - On insulin 10 units - Previously on metformin, discontinued due to perceived ineffectiveness - No side effects from metformin - On Lantus since discontinuing metformin - On pancreatic enzyme supplements for approximately one year Mental Health - History of anxiety and depression - Managed with gabapentin, fluoxetine, BuSpar, and Seroquel - Takes gabapentin 300 mg 2 in the morning, 3 in the afternoon, and 3 at night for anxiety - Takes fluoxetine 40 mg once a day - Takes BuSpar 30 mg twice a day - Takes Seroquel 25 mg twice a day and 50 mg at night for mental health Pancreatitis - History of pancreatitis, last episode over a year ago - On pancreatic enzyme supplements for approximately one year - Occasionally consumes snacks without issues - Has a sales analytics manager - Reports no current abdominal pain - Takes Zenpep 1 capsule 3 times a day with meals for digestion Smoking - History of smoking, approximately one pack per day - Not currently attempting to quit - No use of chewing tobacco - History of marijuana use Sexual Activity - Not currently sexually active - Not sexually active within the past year - No history of sexually transmitted diseases - No history of intravenous drug use Pain Management - History of moderate pain - Managed with Tylenol and ibuprofen as needed Supplemental information: He has a history of appendectomy, hernia repair, and partial colectomy for diverticulitis. He has a primary care physician, Dr. Bonnie Antonio, at [facility] in [place], [place]. He was evaluated for loose stools at [facility] in 12/2023, during which he tested positivefor C. difficile and was successfully treated with antibiotics. He does not recall if he was on Zenpep at that time, but I believe he was already on Zenpep per review of notes. He reports no fevers or chills. SOCIAL HISTORY - Smokes cigarettes, about a pack a day, not trying to quit currently - Currently living at the [facility] FAMILY HISTORY - Father had prostate cancer and at age 77 MEDICATIONS - Current: - Insulin - Gabapentin - Fluoxetine - BuSpar - Seroquel - Tylenol - Ibuprofen - Zenpep - Past: - Metformin History reviewed. No pertinent past medical history. Past Surgical History: Procedure Laterality Date APPENDECTOMY 2013 COLECTOMY HERNIA REPAIR 2022 ROS ROS done as noted in HPI. Objective Visit Vitals BP 125/84 (BP Location: Right arm, Patient Position: Sitting, BP Cuff Size: Adult) Pulse (!) 112 Temp 36.6 ??C (97.8 ??F) (Temporal) Resp 18 Ht 1.77 m (5' 9.69) Wt 83.9 kg (184 lb 14.4 oz) SpO2 91% BMI 26.77 kg/m?? Smoking Status Every Day BSA 2.03 m?? Physical Exam Physical Exam Vitals reviewed. Constitutional: Appearance: He is not ill-appearing or diaphoretic. Cardiovascular: Rate and Rhythm: Normal rate and regular rhythm. Heart sounds: Normal heart sounds. No murmur heard. Pulmonary: Effort: Pulmonary effort is normal. No respiratory distress. Breath sounds: Normal breath sounds. No wheezing. Abdominal: General: Bowel sounds are normal. Palpations: Abdomen is soft. Tenderness: There is no abdominal tenderness. Musculoskeletal: Right lower leg: No edema. Left lower leg: No edema. Neurological: Mental Status: He is alert. documented in this encounter Plan of Treatment Upcoming Encounters Date Type Department Care Team (Late st Contact Info) Description 07/06/2024 1:00 PM CDT Office Visit [address] [address] Santos Salas MD [address] [place] [phone] documented as of this encounter Results * (ABNORMAL) Hemoglobin A1c (06/23/2024 2:35 PM ASSOCIATE FACULTY) Hemoglobin A1C 6.3(H) 4.0 - 5.6 % A1C 06/24/2024 2:10 PM ASSOCIATE FACULTY [facility] Comment: Reference Range 4.0-5.6% is for non- adults >=18 yrs <5.6% Non-Diabetic 5.7-6.4% Increased risk of Diabetes >=6.5% Indicative of Diabetes <7.0% ADA goal for glycemic control Methodology may not detect all hemoglobin variants which can affect A1c results. Method certified by National Glycohemoglobin Standardization Program. Blood (Blood, Venous) 06/23/2024 2:35 PM ASSOCIATE FACULTY 06/24/2024 12:41 PM ASSOCIATE FACULTY us Santos Salas MD LAB BLOOD ORDERABLES Final R esult [facility] [address] [place] [address] * Microalbumin/Creatinine Ratio (06/23/2024 2:28 PM ASSOCIATE FACULTY) Microalbumin,mg/ day <6.0 0.0 - 16.6 mg/L 06/24/2024 1:21 PM ASSOCIATE FACULTY [facility] Creatinine, Urine 68 mg/dL 06/24/2024 1:21 PM ASSOCIATE FACULTY [facility] Comment: No established reference range. Microalb/Creat Ratio see below 0 - 16 mg/g 06/24/2024 1:21 PM ASSOCIATE FACULTY [facility] Comment: Microalbumin value outside of detectable range. Unable to report Microalbumin/Creatinine ratio. Consider 24-hour collection if clinically indicated. Urine 06/23/2024 2:28 PM ASSOCIATE FACULTY 06/24/2024 12:42 PM ASSOCIATE FACULTY us Santos Salas MD LAB URINE ORDERABLES Final R esult [facility] [address] [place] [address] documented in this encounter Visit Diagnoses Diagnosis Encounter for other administrative examinations- Primary Alcohol-induced chronic pancreatitis (HCC) Chronic pancreatitis Type 2 diabetes mellitus without complication, with long-term current use of insulin (HCC) documented in this encounter Care Teams Steward/Stewardess Second Class Relationship Specialty Start Date End Date Bonnie Antonio MD [address] [place] [phone] PCP - General Family Medicine 06/23/24 documented as of this encounter
--- OUTSIDE RECORDS SUMMARY | 2024-07-02 09:42 | XMS_ITS | Clinical Summary ---
Author Organization [facility] Address [address] [place] [address] Phone [email or web address] Care Team Providers Care Grocery Manager Name Role Phone Unavailable Primary Care Provider Unavailabl e Encounters Date Type Department Care Team Description 05/31/2024 Claims Summary [facility] [address] [facility] [place] [address] Provider, Claims Summary MD Elizabet 04/27/2024 Claims Summary [facility] [address] [place] [address] Provider, Claims Summary MD Elizabet from Last 3 Months Social History Tobacco Use Types Packs/Day Years Used Date Smoking Tobacco: Never Assessed Stress Answer Date Recorded Stress in your Life Not on file 02/28/2024 Dealing with Stress 3 02/28/2024 Sex and Gender Information Value Date Recorded Sex Assigned at Not on file Legal Sex Male 12:13 AM CDT Gender Identity Not on file Sexual Orientation Not on file Plan of Treatment Not on file
[2024-07-02 09:51] LABS: HCO3 VBG 28 mmol/L (21-28); Lactate Sepsis w/Reflex* 1.5 mmol/L (0.5-1.9); PCO2 VBG 41 mmHG (40-50); pH VBG 7.441 (7.32-7.43)
[2024-07-02 09:53] LABS: Basophils Absolute Auto 0.03 K/uL (0.00-0.30); Basophils Percent Auto 0.5 % (0.0-3.0); Eosinophils Absolute Auto 0.08 K/uL (0.00-0.50); Eosinophils Percent Auto 1.4 % (0.0-7.0); Hematocrit 45.2 % (37.0-53.0); Hemoglobin* 15.7 gm/dL (13.5-17.5); Immature Granulocytes Abs Auto 0.01 K/uL (0.00-0.30); Immature Granulocytes Pct Auto 0.2 %; Lymphocytes Absolute Auto 1.67 K/uL (0.90-2.90); Lymphocytes Percent Auto 28.7 % (20-44); Mean Corpuscular HGB Conc 35 gm/dL (32-36); Mean Corpuscular Hemoglobin 33 pg (26-34); Mean Corpuscular Volume 94 fL (80-100); Monocytes Percent Auto 8.8 % (0.0-11.0); Neutrophils Absolute Auto 3.52 K/uL (1.7-7.0); Neutrophils Percent Auto 60.4 % (42.0-72.0); Platelet Count* 102 K/uL (140-440); RDW Coefficient of Variation % 11.6 % (11.5-15.5); Red Blood Count 4.82 m/uL (4.30-5.90); White Blood Count* 5.82 K/uL (4.50-11.00)
[2024-07-02 10:07] LABS: Chloride* 100 mmol/L (96-114); Potassium* 3.9 mmol/L (3.6-5.1); Sodium* 136 mmol/L (135-149)
[2024-07-02 10:08] LABS: Albumin* 4.3 g/dL (3.3-5.0)
[2024-07-02 10:09] LABS: Slide Review Reflex Yes
[2024-07-02 10:10] LABS: Blood Urea Nitrogen* 18 mg/dL (5-24); Creatinine* 0.6 mg/dL (0.5-1.5); Est. Creatinine Clearance* 157.15; Estimated Glomerular Filt Rate 120 ml/min
[2024-07-02 10:11] LABS: Alanine Aminotransferase* 65 U/L (4-50); Alkaline Phosphatase* 69 U/L (40-150); Anion Gap 10 mEq/L (7-15); Aspartate Amino Transferase* 34 U/L (12-35); Bilirubin Direct* 0.3 mg/dL (0.0-0.5); Bilirubin Total* 0.4 mg/dL (0.1-1.5); Calcium* 9.1 mg/dL (8.4-10.6); Carbon Dioxide* 26 mmol/L (20-32); Total Protein* 7.1 g/dL (6.0-8.3)
[2024-07-02] MEDS: INSULIN REGULAR, HUMAN 100 UNIT/ML VIAL 8 UNIT SUBCUT (10:12)
[2024-07-02 10:14] LABS: C Reactive Protein* 0.8 mg/dL (0.5-1.0)
[2024-07-02 10:21] LABS: Glucose* 372 mg/dL (60-115); NT Pro B Type NatriureticPept* 28 pg/mL
[2024-07-02 10:48] LABS: Slide Review Acceptable Review (Acceptable)
== END 2024-07-02 11:33 | disposition home or self-care (01) ==
PROVIDERS: Emergency Provider Emergency Medicine
DX: J40 Bronchitis, not specified as acute or chronic (principal); E11.65 Type 2 diabetes mellitus with hyperglycemia
CPT/HCPCS: 36415; 71046; 80048; 80076; 82803; 83605; 83880; 85025; 86140; 99284; J7030